=== PATIENT | female | born 2000 | race Two or more races ===

== ENCOUNTER 2022-05-30 09:29 | Emergency (ER) | payer OTHER ==
[~2022-05-30] VITALS: Ht 162.6 cm; Wt 90.7 kg
--- NOTE | 2022-05-30 09:39 | NUR ---
at bedside for eval
[2022-05-30] MEDS ORDERED: IV NS 0.9% 1,000 ML IV ONE (10:00)
[2022-05-30] MEDS ORDERED: KETOROLAC TROMETHAMINE INJ 30 MG/ML VIAL IV ONE (10:00)
--- NOTE | 2022-05-30 10:07 | NUR ---
lab at bedside
--- NOTE | 2022-05-30 10:28 | NUR ---
PT SIGNED THE WAIVER FORM
[2022-05-30] MEDS ORDERED: KETOROLAC TROMETHAMINE INJ 30 MG/ML VIAL ONE (10:31)
[2022-05-30] MEDS ORDERED: AMOX500C2 PO (10:51)
[2022-05-30] MEDS ORDERED: IBUP-1955 PO (10:51)
--- NOTE | 2022-05-30 11:23 | NUR ---
Patient discharged to home in stable condition. Written and verbal after care instructions given. Patient verbalizes understanding of instruction.
[2022-05-30 11:27] VITALS: BP 123/73
== END 2022-05-30 11:31 | disposition home or self-care (01) ==
LOC: ER 09:31
DX: J02.9 Acute pharyngitis, unspecified (principal); J06.9 Acute upper respiratory infection, unspecified; Z20.822 Contact with and (suspected) exposure to COVID-19; J45.909 Unspecified asthma, uncomplicated
CPT/HCPCS: 99284; 96374; 96361; 87804 ×2; 87880; U0003; J1885; J7030; C9803; 86403-TC